=== PATIENT | male | born 1990 | race Caucasian/White ===

== ENCOUNTER → 2018-05-06 12:40 | Outpatient (CLI) | payer OTHER, SELFPAY ==
--- NOTE | 2018-05-06 | DI.MRI.S_ITS ---
PROCEDURE: MR KNEE RT WO CON INDICATIONS: PAIN IN RIGHT KNEE TECHNIQUE: Noncontrast sagittal PD fast spin echo and T2 fast spin echo with fat saturation, sagittal 3-D FLASH with fat saturation; coronal T1 spin echo and PD fast spin echo with fat saturation, and axial PD fast spin echo with fat saturation through the knee. COMPARISON: None. FINDINGS: Image quality: Diagnostic. Bones and joint: There is no acute fracture or dislocation. No suspicious osseous lesions are evident. No significant knee joint effusion is identified. There is no Wagoner's cyst. No significant degenerative changes of the knee are evident. The hyaline articular cartilage is intact within all 3 compartments. Mild heterogeneity of the patellofemoral articular cartilage is present. Cruciate ligaments: The anterior and posterior cruciate ligaments are intact. Mild increased signal involving the anterior cruciate ligament is present. Menisci: No displaced tears of the medial and lateral menisci are evident. The posterior root ligaments are intact. There is slight increased signal identified along the periphery of the body and posterior horn of the medial meniscus. Medial structures: The medial collateral ligament is intact. The semimembranosus tendon insertion is intact. The imaged portions of the pes anserinus tendons are unremarkable. No significant fluid is contained within the pes anserinus bursa. Lateral structures: The popliteal tendon is intact. The lateral collateral ligament proper (fibular collateral ligament) and the proximal tibiofibular ligaments are intact. The distal aspect of the biceps femoris tendon and the iliotibial band are intact. However, there is thickening of the distal iliotibial band. Anterior structures: The quadriceps and patellar tendons are intact. There is no significant edema in the infrapatellar fat pad. IMPRESSION: 1. Low-grade anterior cruciate ligament sprain. 2. Subtle nondisplaced horizontal tear versus normal vascular structures along the periphery of the body and posterior horn of the medial meniscus. 3. Thickening of the distal iliotibial band is of doubtful significance. Dictated by: Rip Burkett M.D. on 05/06/2018 at 13:03 Approved by: Rip Burkett M.D. on 05/06/2018 at 13:06
== END ==
PROVIDERS: Visit Provider Internal Medicine
DX: S83.511A Sprain of anterior cruciate ligament of right knee, initial encounter (principal); M25.561 Pain in right knee
CPT/HCPCS: 73721

== ENCOUNTER → 2019-06-11 13:11 | Outpatient (CLI) | payer OTHER, SELFPAY ==
--- NOTE | 2019-06-11 | DI.MRI.S_ITS ---
PROCEDURE: MR SHOULDER LT W CON INDICATIONS: Pain in left shoulder TECHNIQUE: After the administration of 12 mL of dilute intra-articular Gadolinium contrast, oblique coronal T1 and T2 spin echo with fat saturation, oblique sagittal T1 spin echo with and without fat saturation, oblique sagittal T2 fast spin echo with fat saturation, axial T1 spin echo with fat saturation through the shoulder. COMPARISON: None. FINDINGS: Image quality: Diagnostic Rotator cuff: No full-thickness or high-grade partial-thickness tear the rotator cuff is identified. There is mild infraspinatus and infraspinatus tendinopathy without significant tearing. The subscapularis and teres minor tendons are intact and within normal limits. No significant atrophy of the rotator cuff muscles is evident. Bones and bursae: No acute fracture, dislocation, or suspicious osseous lesion is identified involving the osseous structures of the shoulder. No significant degenerative changes of the glenohumeral joint are present. There are mild degenerative changes of the acromioclavicular joint with inferior positioning of the acromion with respect to the distal clavicle. There is adequate distention of the glenohumeral joint with the injected contrast. No loose intra-articular joint bodies are evident. No contrast extends into the subacromial subdeltoid bursa to suggest a nonvisualized full-thickness tear of the rotator cuff. Capsule and soft tissues: No focal tears are evident involving the labrum. A normal anterosuperior labral sulcus is evident. The long head of the biceps tendon is normally positioned within the bicipital groove and is otherwise intact and unremarkable. The superior, middle, and inferior glenohumeral ligaments are intact. IMPRESSION: 1. Mild supraspinatus and infraspinatus tendinopathy without significant tearing. 2. No definite tear of the labrum. 3. Mild degenerative changes of the acromioclavicular joint with inferior positioning of the acromion with respect to the clavicle. Please correlate clinically to exclude the possibility of subacromial impingement. Dictated by: Rip Burkett M.D. on 06/11/2019 at 14:25 Approved by: Rip Burkett M.D. on 06/11/2019 at 15:06
--- NOTE | 2019-06-11 | DI.RAD.S_ITS ---
PROCEDURE: FL SHOULDER INJECTION MR/CT LT INDICATIONS: Pain in left shoulder TECHNIQUE: The indications, alternatives, benefits, risks, and complications of the procedure were explained to the patient. Written informed consent was obtained and placed in the chart. The shoulder was examined fluoroscopically and a site for needle placement chosen for entry into the glenohumeral joint from an anterior approach. The skin was prepped and draped in a sterile fashion, and 1% lidocaine infiltrated from skin down to joint capsule. A spinal needle was inserted into the glenohumeral joint, and a small amount of iodinated contrast media injected to confirm intra-articular placement of the needle tip. This was followed by approximately 12 mL dilute solution of a gadolinium containing MR contrast agent. The needle was removed and a dressing was applied. The patient was given postprocedural instructions and sent to the MR suite for MR imaging. FINDINGS: A single fluoroscopic spot image demonstrates intra-articular location of injected iodinated contrast. IMPRESSION: Successful fluoroscopically guided administration of dilute Gadolinium solution into the shoulder joint for MR arthrogram. Dictated by: Criss Epps M.D. on 06/11/2019 at 14:43 Approved by: Criss Epps M.D. on 06/11/2019 at 14:43
== END ==
PROVIDERS: PCP Family Medicine; Visit Provider Family Medicine
DX: M25.512 Pain in left shoulder (principal)
CPT/HCPCS: 23350; 73222; 77002

== ENCOUNTER → 2021-10-10 13:39 | Outpatient (CLI) | payer OTHER, SELFPAY ==
--- NOTE | 2021-10-10 | DI.RAD.S_ITS ---
PROCEDURE: FL SHOULDER INJECTION MR/CT LT INDICATIONS: Impingement syndrome of left shoulder COMPARISON: [facility], [place], [place] SHOULDER INJECTION MR/CT LT, 06/11/2019, 13:33. [facility], MR, MR SHOULDER LT W CON, 10/10/2021, 14:09. TECHNIQUE: The indications, alternatives, benefits, risks, and complications of the procedure were explained to the patient. Written informed consent was obtained and placed in the chart. The shoulder was examined fluoroscopically and a site for needle placement chosen for entry into the glenohumeral joint from an anterior approach. The skin was prepped and draped in a sterile fashion, and 1% lidocaine infiltrated from skin down to joint capsule. A spinal needle was inserted into the glenohumeral joint, and a small amount of iodinated contrast media injected to confirm intra-articular placement of the needle tip. This was followed by approximately 12 mL dilute solution of a gadolinium containing MR contrast agent. The needle was removed and a dressing was applied. The patient was given postprocedural instructions and sent to the MR suite for MR imaging. FINDINGS: A single fluoroscopic spot image demonstrates intra-articular location of injected iodinated contrast. IMPRESSION: Successful fluoroscopically guided administration of dilute Gadolinium solution into the shoulder joint for MR arthrogram. Dictated by: Kindra Agarwal M.D. on 10/10/2021 at 17:13 Approved by: Kindra Agarwal M.D. on 10/10/2021 at 17:14
--- NOTE | 2021-10-10 | DI.MRI.S_ITS ---
PROCEDURE: MR SHOULDER LT W CON INDICATIONS: Impingement syndrome of left shoulder TECHNIQUE: After the administration of 12 mL of dilute intra-articular Gadolinium contrast, oblique coronal T1 and T2 spin echo with fat saturation, oblique sagittal T1 spin echo with and without fat saturation, oblique sagittal T2 fast spin echo with fat saturation, axial T1 spin echo with fat saturation through the shoulder. COMPARISON: MR, MR SHOULDER LT W CON, 06/11/2019, 14:00. FINDINGS: Image quality: Excellent. Rotator cuff: The supraspinatus, infraspinatus, subscapularis, and teres minor appear intact. No rotator cuff muscle atrophy on sagittal images. Bones and bursae: No bone marrow contusions or fractures. There is mild acromioclavicular joint degeneration. The acromion demonstrates conventional anatomy, without an os acromiale. There is trace subacromial/subdeltoid bursal fluid. Capsule and soft tissues: The labrum and glenohumeral ligaments appear intact. The long head of the biceps tendon demonstrates normal location and morphology. The biceps steve appears intact within the rotator interval. The coracohumeral ligament is of normal thickness. No intra-articular bodies. IMPRESSION: 1. No discrete labral tear. 2. Mild acromioclavicular joint degeneration with trace subacromial/subdeltoid bursal fluid. 3. No evidence of a rotator cuff tear. Dictated by: Dannie Alonzo M.D. on 10/11/2021 at 8:53 Approved by: Dannie Alonzo M.D. on 10/11/2021 at 9:25
== END ==
PROVIDERS: PCP Student in an Organized Health Care Education/Training Program; Referring Provider Student in an Organized Health Care Education/Training Program; Visit Provider Student in an Organized Health Care Education/Training Program
DX: M75.42 Impingement syndrome of left shoulder (principal); M19.012 Primary osteoarthritis, left shoulder
CPT/HCPCS: 23350; 73222; 77002

== ENCOUNTER → 2024-02-11 13:09 | Outpatient (CLI) | payer OTHER, SELFPAY ==
--- NOTE | 2024-02-11 13:13 | DI.RAD.S_ITS ---
PROCEDURE: FL SHOULDER INJECTION MR/CT LT INDICATIONS: RUPTURE OF THE LEFT SHOULDER COMPARISON: [facility], , [place] SHOULDER INJECTION MR/CT LT, 10/10/2021, 14:03. TECHNIQUE: The indications, alternatives, benefits, risks, and complications of the procedure were explained to the patient. Written informed consent was obtained and placed in the chart. The shoulder was examined fluoroscopically and a site for needle placement chosen for entry into the glenohumeral joint from an anterior approach. The skin was prepped and draped in a sterile fashion, and 1% lidocaine infiltrated from skin down to joint capsule. A spinal needle was inserted into the glenohumeral joint, and a small amount of iodinated contrast media injected to confirm intra-articular placement of the needle tip. This was followed by approximately 12 mL dilute solution of a gadolinium containing MR contrast agent. The needle was removed and a dressing was applied. The patient was given postprocedural instructions and sent to the MR suite for MR imaging. FINDINGS: A single fluoroscopic spot image demonstrates intra-articular location of injected iodinated contrast. IMPRESSION: Successful fluoroscopically guided administration of dilute Gadolinium solution into the shoulder joint for MR arthrogram. Dictated by: Reed Yang M.D. on 02/11/2024 at 14:23 Approved by: Reed Yang M.D. on 02/11/2024 at 14:24
--- NOTE | 2024-02-11 13:14 | DI.MRI.S_ITS ---
PROCEDURE: MR SHOULDER LT W CON INDICATIONS: RUPTURE OF THE LEFT SHOULDER TECHNIQUE: After the administration of 12 mL of dilute intra-articular Gadolinium contrast, oblique coronal T1 and T2 spin echo with fat saturation, oblique sagittal T1 spin echo with and without fat saturation, oblique sagittal T2 fast spin echo with fat saturation, axial T1 spin echo with fat saturation through the shoulder. COMPARISON: [facility], MR, MR SHOULDER LT W CON, 10/10/2021, 14:09. FINDINGS: Image quality: Excellent. Rotator cuff: The supraspinatus and the infraspinatus tendon are unremarkable. The teres minor is unremarkable. The subscapularis is unremarkable. No muscle edema or fatty atrophy. Bones and bursae: The acromioclavicular joint is unremarkable. Type 1 acromion. No os acromiale. No subacromial/subdeltoid bursitis. Multifocal mild subchondral cystic changes in the posterior humeral head, slightly progressed from prior exam, reactive. No acute fracture. No focal chondral defect. Capsule and soft tissues: Superior labral tear, extending anteriorly to the anterior labrum. The extra-articular biceps tendon is unremarkable. The intra-articular biceps tendon is intact. Moderate amount of intra-articular contrast distends the glenohumeral joint. IMPRESSION: 1. Mild subchondral cystic changes in the posterior humeral head, slightly progressed from prior exam, reactive. 2. Labral tear as described above, unchanged. 3. Unremarkable rotator cuff tendons. Dictated by: Yulisa Quezada M.D. on 02/11/2024 at 16:16 Approved by: Yulisa Quezada M.D. on 02/11/2024 at 16:24
[2024-02-11] MEDS: LIDOCAINE 1% 20 ML INJ (14:07)
[2024-02-11] MEDS: SODIUM CHLORIDE 0.9 % 20 ML VIAL IV (14:08)
== END ==
LOC: RAD 13:12
PROVIDERS: Referring Provider Orthopaedic Surgery; Visit Provider Orthopaedic Surgery
DX: M75.102 Unspecified rotator cuff tear or rupture of left shoulder, not specified as traumatic (principal); S43.492A Other sprain of left shoulder joint, initial encounter
CPT/HCPCS: 23350; 73040; 73222; A9579; Q9967

== ENCOUNTER → 2024-10-29 10:54 | Outpatient (CLI) | payer OTHER, SELFPAY ==
--- NOTE | 2024-10-29 10:57 | DI.US.S_ITS ---
PROCEDURE: US ABDOMEN LIMITED INDICATIONS: poss abd wall defect, eval LLQ TECHNIQUE: Real-time focused scanning was performed of the inguinal region, with image documentation. COMPARISON: None. FINDINGS: There is small amount of fat entering into the left proximal inguinal canal seen on Valsalva maneuver. Fascial defect measures approximately 1.3 cm sagittally and 1.3 cm transversely. Total hernia sac measures approximately 2.4 x 0.6 x 1.2 cm. IMPRESSION: Fat containing left inguinal hernia. Approved by: Gwendolyn Woo M.D.,Ph.D. on 11/02/2024 at 8:19
== END ==
PROVIDERS: PCP Student in an Organized Health Care Education/Training Program; Referring Provider Student in an Organized Health Care Education/Training Program; Visit Provider Student in an Organized Health Care Education/Training Program
DX: K40.90 Unilateral inguinal hernia, without obstruction or gangrene, not specified as recurrent (principal); R10.9 Unspecified abdominal pain
CPT/HCPCS: 76705

== ENCOUNTER 2024-12-25 09:42 | Day surgery (SDC) | payer OTHER, SELFPAY ==
[2024-12-16 10:10] VITALS: BMI 31.2
[2024-12-25] VITALS (7 sets, daily range): BP systolic 97–122; BP diastolic 54–81; PULSE 63–84; RESP 14–16; TEMP 36.3–36.8; O2SAT 94–97; BMI 29.6
[2024-12-25] MEDS: LACTATED RINGERS 1,000 ML 42 ML IV (10:12)
--- NOTE | 2024-12-25 11:02 | PM.PREOP ---
Pre-operative Note COVID-19 COVID-19 status: Not tested Interval Note History & Physical reviewed/Exam performed by Physician: Yes Changes to H&P: No ASA Class (for procedural sedation): II
--- NOTE | 2024-12-25 11:35 | SUR.OPER ---
Supine on padded OR bed, head on pillow, arms secured on padded arm boards at <90 degrees abduction, legs uncrossed, safety belt at thigh, tape over blanket over lower legs.
[2024-12-25] MEDS: ACETAMINOPHEN IV 1,000 MG/100 ML VIAL 400 MG IV (11:42)
[2024-12-25] MEDS: BUPIVACAINE 0.25% (PF) VIAL 30 ML INJ (11:42)
--- NOTE | 2024-12-25 12:13 | P.OP_ITS ---
Operative Date/Time/Diagnoses Date of procedure: 12/25/24 Time of procedure: 12:00 Pre-op diagnosis: Left inguinal hernia Post-op diagnosis: same Procedure & Clinicians Procedure: Left inguinal hernia repair Same procedure as scheduled: Yes Surgeon: Joaquin Sims Supervisor [employer] Plant: Derrick Patton Click Yes if Unassisted: No Anesthesia Type: General Operative Notes Findings: Indirect left inguinal hernia Closure Type: primary Specimen(s): none sent Estimated Blood Loss (mL): 5 Procedure in detail: After obtaining informed consent properly identifying the patient the patient was transported to the operating room and was placed on the table in the supine position.. Time was observed in the left groin was prepped and draped in the usual sterile manner. A curvilinear incision of 6 and length was made in the left groin with the left inguinal canal using surface landmarks. Incision was made with a 10 blade and was carried sharply down onto the external oblique aponeurosis with the electrocautery. The external oblique aponeurosis was then incised in the line of its fibers from a point overlying the internal inguinal ring to the upper outer margin of the external inguinal ring. Spermatic cord was bluntly dissected free of the inguinal canal and a quarter-inch Rdead drain was passed about it for gentle retraction throughout the remainder of the procedure. Chordal structures were meticulously identified and spared throughout the ensuing dissection. The cord was skeletonized bluntly and a cord lipoma was sharply and bluntly dissected free of the anteromedial aspect of the spermatic cord. This was in association with a small hernial sac which similarly was dissected. Contents of the hernia were reduced and were retained in a reduced position by passage into the internal inguinal ring of the medium PerFix plug. This was secured with a series of 0 Prolene simple interrupted s utures which imbricated tissues at the margin of the internal inguinal ring into the open mouth of the plug. Next the posterior wall of the inguinal canal was reconstructed by applying the pre cut patch. This was coapted to the soft tissues overlying the pubic tubercle, to the inferior margin of the transversus abdominis aponeurosis and the shelving edge of Poupart's ligament with simple interrupted sutures of 0 Prolene. The spermatic cord was made to lie in the keyhole of the pre cut patch and the internal ring was reconstructed by coagulating the tails to 1 another, lateral to the spermatic cord, with a simple interrupted suture of 0 Prolene. The patch was made to lie flat deep to the external oblique aponeurosis, which was then repaired with a running 0 Vicryl stitch. Field block of 0.5% Marcaine was instilled into the skin and subcutaneous tissues at the wound which was then closed with a series of inverted deep dermal simple interrupted 3-0 Vicryl sutures and Dermabond. The patient tolerated the procedure well and was transported to the recovery room extubated and awake. Complications: none Post-operative Condition: stable Disposition: PACU Plan for aftercare: Discharge to home when awake, alert and receiving adequate pain control.
[2024-12-25] MEDS: OXYCODONE IR 5 MG TABLET PO (12:56)
[2024-12-25] MEDS: ONDANSETRON 4 MG/2 ML INJ IV (12:56)
== END 2024-12-25 13:19 | disposition home or self-care (01) ==
PROVIDERS: PCP Student in an Organized Health Care Education/Training Program; Referring Provider Surgery; Visit Provider Surgery
PROC: (CPT 49505; principal; 2024-12-25 11:30)
DX: K40.90 Unilateral inguinal hernia, without obstruction or gangrene, not specified as recurrent (principal); D17.6 Benign lipomatous neoplasm of spermatic cord; Z87.891 Personal history of nicotine dependence
CPT/HCPCS: 49505; C1781; J0131; J1100; J1885; J2250; J2405; J2704; J3010